=== PATIENT | female | born 1955 | race Two or more races ===

== ENCOUNTER 2020-11-07 07:16 | Outpatient (CLI) | payer OTHER | END 2020-11-07 07:27 | disposition home or self-care (01) | LOC: NUCLEAR 07:16 | PROVIDERS: ATTEND Specialist | DX: E21.0 Primary hyperparathyroidism (principal) | CPT/HCPCS: 78072; A9500 ==

== ENCOUNTER 2021-01-29 05:33 | Day surgery (SDC) | payer OTHER ==
[~2021-01-29 05:33] MED LIST: HYDROCHLOROTHIA25 MG PO; NORVASC5 MG PO; PANADOL EXTRA500 MG PO; VASOTEC20 M1 PO
[2021-01-29] MEDS ORDERED: PERCOCET 5-3251 EACH PO (10:39)
== END 2021-01-29 14:35 | disposition home or self-care (01) ==
LOC: CIR.AMB 05:33
PROVIDERS: ATTEND Surgery
DX: D35.1 Benign neoplasm of parathyroid gland (principal); Z20.822 Contact with and (suspected) exposure to COVID-19